=== PATIENT | female | born 1965 | race Two or more races ===

== ENCOUNTER 2024-07-29 16:17 | Inpatient (IN) | payer MEDICAID ==
[~2024-07-29] VITALS: Ht 165.1 cm; Wt 87.1 kg
[2024-07-29] MEDS ORDERED: HYDR-4902 PO (17:27)
[2024-07-29] MEDS ORDERED: IBUP-1455 PO (17:27)
--- NOTE | 2024-07-29 17:28 | ED.PDOC ---
Musculoskeletal HPI Comments 58-year-old female with no pertinent past medical history, presents to ED for right knee pain x2 days. Patient reports that she fell yesterday and broke her kneecap yesterday. She was seen here yesterday and was discharged and advised to follow up with Orthopedics. Patient reports that she fell again today onto her right knee, while using her crutches, causing worsening pain. She denies any head injury, LOC, nausea, vomiting. She currently rates her pain as 10/10 in severity. No alleviating or aggravating factors. Chief Complaint: Lower Extremity Time Seen by MD: 16:47 Primary Care Provider: NONE Reviewed Notes: Nurses Notes, Medications, Allergies Allergies: Coded Allergies: NO KNOWN ALLERGIES (Unverified , 07/28/24) Home Meds Active Scripts Ondansetron Odt 4MG Tab (ZOFRAN PO) 4 Mg Tb, 4 MG PO Q8HPRN PRN, #20 TAB ODT TAB-DISSOLVE IN MOUTH, THEN SWALLOW Prov:EDWIN BOYKIN [facility] 07/29/24 Ibuprofen Micronized (Ibuprofen) 800 Mg Tab, 800 MG PO Q8HPRN PRN, #30 TAB Prov:EDWIN BOYKIN [facility] 07/29/24 Hydrocodone-Acetaminophen (Hydrocodone Bitartrate/AC 5-325 mg) 1 Tab Tab, 1 TAB PO Q6HPRN PRN, #20 TAB Prov:EDWIN BOYKIN [facility] 07/29/24 Mode of Arrival: Wheelchair Past Medical History PAST MEDICAL HISTORY: Denies Surgical History: Denies all surgeries INTERCHANGE AGENT History: No Pertinent INTERCHANGE AGENT History Family History Family History: Reviewed,noncontributory to illness Social History Smoker: Non-Smoker Alcohol: Denies ETOH Use Drugs: Denies Drug Use Constitutional: denies: chills, diaphoresis, fatigue, fever, malaise, sweats, weakness, others EENTM: denies: blurred vision, double vision, ear bleeding, ear discharge, ear drainage, ear pain, ear ringing, eye pain, eye redness, hearing loss, mouth pain, mouth swelling, nasal discharge, nose bleeding, nose congestion, nose pain, photophobia, tearing, throat pain, throat swelling, voice changes, others Respiratory: denies: cough, hemoptysis, orthopnea, SOB at rest, shortness of breath, SOB with excertion, stridor, wheezing, others Cardiovascular: denies: chest pain, dizzy spells, diaphoresis, Dyspnea on exertion, edema, irregular heart beat, left arm pain, lightheadedness, palp itations, PND, syncope, others Gastrointestinal: denies: abdomen distended, abdominal pain, blood streaked bowels, constipated, diarrhea, dysphagia, difficulty swallowing, hematemesis, melena, nausea, poor appetite, poor fluid intake, rectal bleeding, rectal pain, vomiting, others Genitourinary: denies: abnormal vagina bleeding, burning, dyspareunia, dysuria, flank pain, frequency, hematuria, incontinence, pain, , vagina discharge, urgency, others Neurological: denies: dizziness, fainting, headache, left sided numbness, left sided weakness, numbness, paresthesia, pre-existing deficit, right sided numbness, right sided weakness, seizure, speech problems, tingling, tremors, weakness, others Musculoskeletal: reports: joint pain; denies: back pain, gout, joint swelling, muscle pain, muscle stiffness, neck pain, others Integumetry: denies: bruises, change in color, change in hair/nails, dryness, laceration, lesions, lumps, rash, wounds, others Allergic/Immunocompromised: denies: Difficulty Healing, Frequent Infections, Hives, Itching, others Hematologic/Lymphatic: denies: anemia, blood clots, easy bleeding, easy bruising, swollen glands, others Endocrine: denies: excessive hunger, excessive sweating, excessive thirst, excessive urination, flushing, intolerance to cold, intolerance to heat, unexplained weight gain, unexplained weight loss, others Psychiatric: denies: anxiety, bipolar disorder, depression, hopeless, panic disorder, schizophrenia, sleepless, suicidal, others All Other Systems: Reviewed and Negative Physical Exam General Appearance: No Apparent Distress, Normal HEENT: Normal ENT Inspection, Pharynx Normal, TMs Normal Neck: Full Range of Motion, Non-Tender, Normal, Normal Inspection Respiratory: Chest Non-Tender, Lungs Clear, No Accessory Muscle Use, No Respiratory Distress, Normal Breath Sounds Cardiovascular: No Edema, No JVD, No Murmur, No Gallop, Normal Peripheral Pulses, Regular Rate/Rhythm Breast Exam: Deferred Gastrointestinal: No Organomegaly, Non Tender, No Pulsatile Mass, Normal Bowel Sounds, Soft Genitalia: Deferred Pelvic: Deferred Rectal: Deferred Extremities: No calf tenderness, Normal capillary refill, Normal inspection, Normal range of motion, Non-tender, No pedal edema Musculoskeletal : Location: Right Extremity Location: Knee (Patient is in wheelchair with right knee immobilizer. The is moderate swelling noted to the right knee. No obvious deformity noted. Normal sensation to the right knee. No open wounds noted. No pallor noted to the right lower extremity. Negative pulselessness. No pain out of proportion.) Apperance: Normal Neurologic: Alert, quality process auditor II-XII nml as Tested, No Motor Deficits, Normal Affect, Normal Mood, No Sensory Deficits Cerebellar Function: Normal Reflexes: Normal Skin: Dry, Normal Color, Warm Lymphatic: No Adenopathy Was a procedure done? Was a procedure done?: No Differential Diagnosis EXT Differential Diagnosis: Fracture, Sprain, Dislocation, Neurovascular injury, Arthritis X-Ray, Labs, Meds, VS Vital Signs Date Time Temp Pulse Resp B/P (MAP) Pulse Ox O2 Delivery O2 Flow Rate FiO2 07/29/24 16:40 99.6 106 18 161/89 (113) 98 Current Medications Medications (Trade) Dose Ordered Sig/Beltran Route Start Time Stop Time Status Last Admin Acetaminophen/ Hydrocodone Bitart ([place] 5/325MG Tab) 1 tab ONCE ONCE PO 07/29/24 17:30 07/29/24 17:31 DC 07/29/24 17:36 Ondansetron HCl (Zofran Po) 4 mg ONCE ONCE PO 07/29/24 17:30 07/29/24 17:31 DC 07/29/24 17:37 X-Ray, Labs, Meds, VS Comment Right Knee XR Findings/Impression: 3 views of the right knee. Redemonstrated moderately displaced and nondisplaced patellar fracture. Moderate soft tissue edema. There is no evidence of dislocation, blastic, or lytic lesions. No radiopaque foreign bodies. MDM: Patient with history as above presented with right knee pain. History obtained from patient. Patient was nontoxic, stable, afebrile, ambulatory, no acute distress. Exam as above. Independently reviewed imaging. Right Knee X-ray redemonstrates a mid patella fracture, displaced. Reviewed external records. All findings were discussed with the patient. Differential diagnosis considered. Overall presentation is consistent with patella fracture. Low suspicion for dislocation, compartment syndrome. Patient was treated with [place] and Zofran with improvement in symptoms. Patient was reevaluated and vital signs were reviewed. Consideration was given for admission, but the patient was stable for outpatient management. Patient was advised to follow up with orthopedics in clinic yesterday. She tried to follow up today, however she states that the orthopedic department denied since she has emergency [facility]. I spoke to my colleague TESS Nunez, who saw the patient yesterday for the initial fracture. Because patient is now a fall risk and has no ability to do take care of herself and get follow up, the patient will be admitted to the hospital for further evaluation by Orthopedics. With patient being admitted to the hospital, emergency medical should cover. Disposition: Admit This medical document was created using the [email or web address] dictation system. Although this document has been carefully reviewed, there may still be some phonetic and typographical errors, which are due to imperfections of the software program, and do not reflect any compromise in the patient's medical care. Time of 1ST Reevaluation: 17:20 Reevaluation 1ST: Improved Patient Education/Counseling: Diagnosis, Treatment, Prognosis, Need For Follow Up Family Education/Counseling: No Family Present Departure 1 Departure Time of Disposition: 17:26 Impression: Primary Impression: Patella fracture Qualified Codes: S82.031A - Displaced transverse fracture of right patella, initial encounter for closed fracture Disposition: ADMITTED INPATIENT Condition: Fair Critical Care Note Critical Care Time?: No Stability Stability form required: No Heart Score Heart Score: Heart Score Response (Comments) Value History N/A 0 EKG N/A 0 Age N/A 0 Risk Factors N/A 0 Troponin N/A 0 Total 0 EDWIN BOYKIN PAC Jul 29, 2024 17:28
[2024-07-29] MEDS: HYDROcodone-ACET 5/325MG TAB PO ONE (17:36)
[2024-07-29] MEDS: ONDANSETRON ODT 4 MG TAB PO ONE (17:37)
--- NOTE | 2024-07-29 17:38 | DVH ---
EXAM: XY R KNEE 3V XRAY CLINICAL HISTORY: RIGHT KNEE PAIN POST FALL COMPARISON: XY R KNEE 3V XRAY on DOS: 07/28/24 TECHNIQUE: XY R KNEE 3V XRAY Findings/Impression: 3 views of the right knee. Redemonstrated moderately displaced and nondisplaced patellar fracture. Moderate soft tissue edema. There is no evidence of dislocation, blastic, or lytic lesions. No radiopaque foreign bodies.
[2024-07-29] MEDS ORDERED: ZOFR4T PO (17:43)
--- NOTE | 2024-07-29 19:21 | DVH ---
CHEST RADIOGRAPH Indication: pre-op Technique: Single frontal view of the chest was obtained Comparison: None FINDINGS: Lines and Tubes: None Lungs: Clear Pleura: No effusion. No pneumothorax. Cardiomediastinal contours: Unremarkable Bones: Unremarkable IMPRESSION: 1. Clear lungs.
[2024-07-29 19:48] LABS: Basophils # (auto) 0 10 ^3/uL (0-0.2); Basophils % (auto) 0.3 % (0.0-2.0); Eosinophils # (auto) 0 10 ^3/uL (0-0.8); Eosinophils % (auto) 0.5 % (0.0-7.0); Hematocrit 40.9 % (36.0-46.0); Lymphocytes # (auto) 1.4 10 ^3/uL (0.4-5.4); Lymphocytes % (auto) 17.1 % (10.0-50.0); Mean Corpuscular Hemoglobin 31.9 pg (28.0-32.0); Mean Corpuscular Hgb Conc. 34.2 g/dL (32.0-36.0); Mean Corpuscular Volume 93.3 fL (80.0-100.0); Monocytes # (auto) 0.6 10 ^3/uL (0-1.3); Monocytes % (auto) 6.9 % (0.0-12.0); Neutrophils % (auto) 75.2 % (37.0-80.0); Platelet Count (auto) 253 10^3/uL (140-450); Red Blood Cells 4.38 10^6/uL (4.0-5.20); Red Cell Distribution Width 13.5 % (11.8-14.3)
[2024-07-29 19:59] LABS: Alanine Aminotransferase 24 U/L (7-40); Alkaline Phosphatase 57 U/L (46-116)
[2024-07-29 20:00] LABS: Albumin 4.6 g/dL (3.2-4.8); Anion Gap 6 (5-15); Aspartate Aminotransferase 20 U/L (13-40); BUN/Creatinine Ratio 13.7 (10.0-20.0); Bilirubin, Total 0.5 mg/dL (0.2-1.0); Blood Urea Nitrogen 13 mg/dL (9-23); Calcium 10.2 mg/dL (8.7-10.4); Carbon Dioxide 29 mmol/L (20-31); Sodium 144 mmol/L (136-145); Total Protein 7.1 g/dL (5.7-8.2)
[2024-07-29 20:13] LABS: Chloride 109 mmol/L (98-107); Glucose 159 mg/dL (74-106)
[2024-07-29] MEDS ORDERED: NITROGLYCERIN 0.4 MG SL TAB SL PRN (23:00)
[2024-07-29] MEDS ORDERED: MORPHINE SULFATE INJ 2 MG/ml SYRG IV PRN (23:00)
--- NOTE | 2024-07-29 23:41 | DVHHPRES ---
History of Present Illness Resident Creating Document: DERECK CAMPBELL RESIDENT History of Present Illness Patient is a 58-year-old female with no significant past medical history came to the ED for knee pain status post mechanical fall. Patient reports that yesterday she walking on a payment and tripped over a stone and fell down on her right knee and felt that her whole bodies weight was on her right knee. She had severe pain and felt that the bone in kneecap (patella) moved up and she pushed it down. She visited the ER and her right knee was put in an immobilizer. Patient was discharged and given information about the patellar fracture and advised to follow up outpatient with Orthopedics. Patient reports that today while she was in the bathroom, she slipped crutches and fell down with a worsening of the pain in her right knee. Denies trauma to the hip, head trauma, loss of consciousness. Past medical history: None reported Past surgical history: None reported Social history: Lives with the and denies smoking, alcohol, drug use Home medications: [id number] multivitamins and herbal medications Review of Systems Review of Systems Seen and examined at the bedside. Alert and oriented to time, place and person Right knee is in immobilizer and is swollen and pain on movement. Denies headache, hip pain, dizziness, loss of consciousness. Denies chest pain, shortness of breath, palpitations Allergies: Coded Allergies: NO KNOWN ALLERGIES (Unverified , 07/28/24) Medications Current Medications Medications Dose Ordered Sig/Beltran Route Start Time Stop Time Status Last Admin Dose Admin Nitroglycerin 0.4 mg Q5MINP PRN SL 07/29/24 23:00 Morphine Sulfate 2 mg Q30M PRN IV 07/29/24 23:00 Acetaminophen/ Hydrocodone Bitart 1 tab Q6HPRN PRN PO 07/29/24 23:15 Exam Vital Signs Vital Signs Date Time Temp Pulse Resp B/P (MAP) Pulse Ox O2 Delivery O2 Flow Rate FiO2 07/29/24 16:40 99.6 106 18 161/89 (113) 98 Exam Physical Examination Gen - no pallor, no icterus, no cyanosis, no clubbing, no LAD, no edema . Skin - Patients skin is warm and dry. HEENT - normocephalic, atraumatic, moist mucous membranes. Neck - full ROM, no LAD, no JVD. Pulmonary - B/L vesicular breath sounds. no crackles , no wheezing, no stridor. cardiovascular - normal S1,S2 heard. no murmurs heard. peripheral pulses radial 2+, pedal 2+. GI - soft abdomen without tenderness to palpation . no hepatospleenomegaly. Bowel sounds normoactive Neurological - Patient is A/O X 3 .Bilateral upper extremity strength 5/5, left lower extremity strength 5/5, right knee immobilized, normal right foot flexion and extension, no facial droop, normal speech, no tremor, no sensory deficiets. Labs/Xrays Labs Test 07/29/24 19:15 Range/Units White Blood Count 8.0 4.4-10.8 10^3/uL Red Blood Count 4.38 4.0-5.20 10^6/uL Hemoglobin 14.0 12.2-16.2 g/dL Hematocrit 40.9 36.0-46.0 % Mean Corpuscular Volume 93.3 80.0-100.0 fL Mean Corpuscular Hemoglobin 31.9 28.0-32.0 pg Mean Corpuscular Hemoglobin Concent 34.2 32.0-36.0 g/dL Red Cell Distribution Width 13.5 11.8-14.3 % Platelet Count 253 140-450 10^3/uL Mean Platelet Volume 8.6 6.9-10.8 fL Neutrophils (%) (Auto) 75.2 37.0-80.0 % Lymphocytes (%) (Auto) 17.1 10.0-50.0 % Monocytes (%) (Auto) 6.9 0.0-12.0 % Eosinophils (%) (Auto) 0.5 0.0-7.0 % Basophils (%) (Auto) 0.3 0.0-2.0 % Neutrophils # (Auto) 6.0 1.6-8.6 10 ^3/uL Lymphocytes # (Auto) 1.4 0.4-5.4 10 ^3/uL Monocytes # (Auto) 0.6 0-1.3 10 ^3/uL Eosinophils # (Auto) 0 0-0.8 10 ^3/uL Basophils # (Auto) 0 0-0.2 10 ^3/uL Nucleated Red Blood Cells 0.0 % Sodium Level 144 136-145 mmol/L Potassium Level 4.0 3.5-5.1 mmol/L Chloride Level 109 H 98-107 mmol/L Carbon Dioxide Level 29 20-31 mmol/L Anion Gap 6 5-15 Blood Urea Nitrogen 13 9-23 mg/dL Creatinine 0.95 0.550-1.02 mg/dL Glomerular Filtration Rate Calc 69 >90 mL/min BUN/Creatinine Ratio 13.7 10.0-20.0 Serum Glucose 159 H 74-106 mg/dL Calcium Level 10.2 8.7-10.4 mg/dL Total Bilirubin 0.5 0.2-1.0 mg/dL Aspartate Amino Transferase (AST) 20 13-40 U/L Alanine Aminotransferase (ALT) 24 7-40 U/L Alkaline Phosphatase 57 46-116 U/L Total Protein 7.1 5.7-8.2 g/dL Albumin 4.6 3.2-4.8 g/dL Assessment/Plan Assessment/Plan Assessment and plan # Right Patellar fracture # S/p mechanical fall - right knee X ray shows moderately displaced and nondisplaced patellar fracture - Knee placed in immobiliser - Orthopaedics consulted - Quinten prn for pain control # Uncontrolled Hypertension # Hypertensive heart disease - On hydralazine 10mg prn - Continue BP monitoring Goals of care discussed with the patient for over 23 mins. full code Plan discussed with Plan discussed with: Patient, Spouse My Orders Orders - DERECK CAMPBELL RESIDENT Procedure Category Date Status Time Admit ADMIT 07/29/24 Transmitted 22:54 Nitroglycerin PHA 07/29/24 In Process Sublingual (Ntrostat 23:00 Morphine Sulfate PHA 07/29/24 In Process Injection 23:00 Basic Metabolic Panel LAB 07/30/24 Verified 04:00 Complete Blood Count LAB 07/30/24 Verified 04:00 Prothrombin Time W/ LAB 07/30/24 Verified INR 04:00 Electrocardigram EKG 07/29/24 Logged 22:54 Hydrocodone-Acet PHA 07/29/24 In Process 5/325mg Tab ([place] 23:15 * Orthopedic Consult CONS 07/29/24 Transmitted 23:03 Date of Service: Jul 29, 2024 Billing Provider: ELOINA FLEMING MD Common Visit Codes: [id number] INP/OBS CARE (HIGH) Secondary Visit Codes: [id number] CARE PLAN 30 MINUTES DERECK CAMPBELL RESIDENT Jul 29, 2024 23:40 ELOINA FLEMING MD Jul 30, 2024 09:25
[2024-07-30] MEDS: HYDROcodone-ACET 5/325MG TAB PO PRN (03:26)
[2024-07-30] MEDS ORDERED: hydrALAZINE HCL 20 MG/ML VL IV PRN (04:15)
[2024-07-30 04:22] LABS: Basophils # (auto) 0 10 ^3/uL (0-0.2); Basophils % (auto) 0.4 % (0.0-2.0); Eosinophils # (auto) 0.2 10 ^3/uL (0-0.8); Eosinophils % (auto) 2.1 % (0.0-7.0); Hematocrit 39.4 % (36.0-46.0); Hemoglobin 13.5 g/dL (12.2-16.2); Lymphocytes % (auto) 26.2 % (10.0-50.0); Mean Corpuscular Hemoglobin 32.1 pg (28.0-32.0); Mean Corpuscular Hgb Conc. 34.3 g/dL (32.0-36.0); Mean Corpuscular Volume 93.8 fL (80.0-100.0); Monocytes # (auto) 0.6 10 ^3/uL (0-1.3); Monocytes % (auto) 7.7 % (0.0-12.0); Neutrophils # (auto) 4.9 10 ^3/uL (1.6-8.6); Neutrophils % (auto) 63.6 % (37.0-80.0); Nucleated Red Blood Cells % 0.1 %; Platelet Count (auto) 223 10^3/uL (140-450); Red Cell Distribution Width 13.5 % (11.8-14.3); White Blood Cell 7.7 10^3/uL (4.4-10.8)
[2024-07-30 04:23] LABS: Potassium 3.5 mmol/L (3.5-5.1); Sodium 143 mmol/L (136-145)
[2024-07-30 04:24] LABS: Anion Gap 6 (5-15); Carbon Dioxide 27 mmol/L (20-31)
[2024-07-30 04:25] LABS: Calcium 10.1 mg/dL (8.7-10.4)
[2024-07-30 04:29] LABS: BUN/Creatinine Ratio 13.5 (10.0-20.0); Blood Urea Nitrogen 13 mg/dL (9-23)
[2024-07-30 04:30] LABS: Chloride 110 mmol/L (98-107); Glucose 147 mg/dL (74-106); INR 1.01 (0.9-1.15); Prothrombin Time 10.7 sec (9.3-11.8)
[2024-07-30 04:57] LABS: Folate (Folic Acid) 44.08 ng/mL (>5.38)
[2024-07-30 08:30] VITALS: PULSE 89; RESP 16; O2SAT 98
[2024-07-30 13:00] VITALS: BP 143/71; PULSE 87; RESP 18; TEMP 98.5; O2SAT 95
[2024-07-30 16:34] VITALS: BP 149/86; PULSE 84; RESP 16; TEMP 98.4; O2SAT 97
--- NOTE | 2024-07-30 16:39 | DVHPN2 ---
Subjective Patient continues to report having right knee pain. Reviewed: Care Plan, H&P, Labs, Medications Changes from previous H/P or p: No Changes General: Per HPI Objective Vitals Vital Signs Date Time Temp Pulse Resp B/P (MAP) Pulse Ox O2 Delivery O2 Flow Rate FiO2 07/30/24 16:34 98.4 84 16 149/86 (107) 97 98.4 07/30/24 12:08 Room Air* 0 21 General Appearance: Alert, Oriented X3, Cooperative, No acute distress HEENT: Atraumatic, PERRLA Lungs: Clear to auscultation, Normal air movement Cardiovascular: Normal S1, Normal S2 Extremities: Other (Right knee swelling) Neuro: Normal gait, Normal speech Psych/Mental Status: Mental status NL, Mood NL Medications Current Medications Medications Dose Ordered Sig/Beltran Route Start Time Stop Time Status Last Admin Dose Admin Nitroglycerin 0.4 mg Q5MINP PRN SL 07/29/24 23:00 Morphine Sulfate 2 mg Q30M PRN IV 07/29/24 23:00 Acetaminophen/ Hydrocodone Bitart 1 tab Q6HPRN PRN PO 07/29/24 23:15 07/30/24 12:42 1 TAB Hydralazine HCl 10 mg Q6HP PRN IV 07/30/24 04:15 Laboratory Results Laboratory Tests 07/30/24 03:49 Chemistry Test 07/29/24 19:15 07/30/24 03:49 Albumin 4.6 g/dL (3.2-4.8) Calcium Level 10.2 mg/dL (8.7-10.4) 10.1 mg/dL (8.7-10.4) Total Protein 7.1 g/dL (5.7-8.2) Coagulation Test 07/30/24 03:49 Prothrombin Time 10.7 sec (9.3-11.8) Prothrombin Time INR 1.01 (0.9-1.15) LFT Test 07/29/24 19:15 Alanine Aminotransferase (ALT) 24 U/L (7-40) Alkaline Phosphatase 57 U/L (46-116) Aspartate Amino Transferase (AST) 20 U/L (13-40) Total Bilirubin 0.5 mg/dL (0.2-1.0) HgA1c, TSH Test 07/30/24 03:49 Hemoglobin A1c 5.4 % A1C (<5.7) Labs and/or images reviewed: Labs reviewed by me, Image(s) reviewed by me Assessment/Plan Assessment/Plan Impression: -non communicated right patellar fracture -obesity Plan: -pain management -orthopedic surgery consultation -continue immobilizer to right lower extremity -further course of care per recommendations by surgery. Total time spent with patient discussing and formulating plan of care: 35 minutes. This medical document was created using an electronic medical record system with [employer] dictation system. Although this document has been carefully reviewed, there may still be some phonetic and typographical errors. These areas are purely typographical due to imperfections of the software programs, and do not reflect any compromise in the patient's medical care. Plan discussed with: Patient, Other (RN) Date of Service: Jul 30, 2024 Billing Provider: KYLIE ASTUDILLO NP Common Visit Codes: [id number] INP/OBS CARE(HIGH) KYLIE ASTUDILLO NP Jul 30, 2024 16:39
[2024-07-30 20:00] VITALS: PULSE 94; RESP 18
[2024-07-30 21:00] VITALS: BP 149/78; PULSE 88; RESP 18; TEMP 98.3; O2SAT 93
[2024-07-30 23:10] LABS: Urine Bacteria None Seen /hpf (None Seen)
[2024-07-30 23:24] LABS: Urine Blood Negative /uL (Negative); Urine Clarity Clear (Clear); Urine Color Colorless (Yellow); Urine Protein, UAD Negative (Negative); Urine Specific Gravity 1.005 (1.001-1.035); Urine Squamous Epithelial Cell FEW /hpf (<5); Urine Urobilinogen Normal (Negative); Urine WBC <1 /hpf (0 - 5)
[2024-07-31] VITALS (9 sets, daily range): BP systolic 130–157; BP diastolic 74–89; PULSE 84–111; RESP 14–19; TEMP 97.8–98.8; O2SAT 92–99
[2024-07-31] MEDS ORDERED: PROPOFOL 10 MG/ML 20 ML IV ONE ×3 (11:21→12:50)
[2024-07-31] MEDS ORDERED: GLYCOPYRROLATE 0.2 MG/ML 1ML VIAL ONE (11:21)
[2024-07-31] MEDS ORDERED: DexAMETHasone SOD PHOS 10MG/1ML VIAL INJ ONE ×2 (11:22)
[2024-07-31] MEDS ORDERED: EPINEPHrine HCL 1 MG/1 ML AMP ONE (11:22)
[2024-07-31] MEDS ORDERED: ONDANSETRON HCL 4 MG/2 ML VIAL ONE (11:22)
[2024-07-31] MEDS ORDERED: KETOROLAC TROMETH 30 MG/ML 1ML VIAL ONE (11:22)
[2024-07-31] MEDS: ACETAMINOPHEN IV 1000 MG/100ML (10MG/ML) IV ONE (11:45)
[2024-07-31] MEDS: GABAPENTIN 300 MG CAP PO ONE (11:45)
[2024-07-31] MEDS: CELECOXIB 100 MG CAP PO ONE (11:45)
[2024-07-31] MEDS: ceFAZolin 2 GM/D5W100ml 100 ML IV ONE (11:47)
[2024-07-31] MEDS: VANCOMYCIN HCL 1000 MG VL ONE (11:47)
[2024-07-31] MEDS ORDERED: LIDOCAINE 2% (LOCAL ANESTH.) PF 5ml SDV ONE (11:55)
[2024-07-31] MEDS: BUPIVACAINE HCL 50 ML ONE (12:13)
[2024-07-31] MEDS ORDERED: fentaNYL CITRATE 100 MCG/2 ML VL ONE (12:44)
[2024-07-31] MEDS ORDERED: hydrALAZINE HCL 20 MG/ML VL IV PRN (14:00)
[2024-07-31] MEDS ORDERED: ePHEDrine SULFATE 50 MG/ML AMP IV PRN (14:00)
[2024-07-31] MEDS ORDERED: oxyCODONE HCL 5MG TAB PO PRN (14:00)
[2024-07-31] MEDS ORDERED: FLUMAZENIL 0.1 MG/ML INJ 10ML MDV IV PRN (14:00)
[2024-07-31] MEDS ORDERED: HYDROmorphone HCL 2 MG/ML VL/or syr IV PRN (14:00)
[2024-07-31] MEDS ORDERED: NALOXONE HCL 0.4 MG/ML VIAL IV PRN (14:00)
[2024-07-31] MEDS ORDERED: fentaNYL CITRATE 100 MCG/2 ML VL IV PRN (14:00)
[2024-07-31] MEDS ORDERED: ONDANSETRON HCL 4 MG/2 ML VIAL IV PRN (14:00)
--- NOTE | 2024-07-31 14:29 | DVHINCON2 ---
Date of service: Jul 31, 2024 Allergies: Coded Allergies: NO KNOWN ALLERGIES (Unverified , 07/28/24) Current Medications Current Medications Medications (Trade) Dose Ordered Sig/Beltran Route PRN Reason Start Time Stop Time Status Last Admin Ondansetron HCl (Zofran) 4 mg ONCE PRN IV NAUSEA / VOMITING 07/31/24 14:00 07/31/24 14:03 DC Naloxone HCl (Narcan) 0.4 mg Q10M PRN IV NARCOTIC REVERSAL 07/31/24 14:00 07/31/24 14:27 DC Flumazenil (Romazicon Injection) 0.2 mg ONCE PRN IV BENZODIAZEPINE REVERSAL 07/31/24 14:00 07/31/24 14:03 DC Hydralazine HCl (Apresoline Injection) 5 mg Q10M PRN IV SBP>160 07/31/24 14:00 07/31/24 14:51 Ephedrine Sulfate (ePHEDrine SULFATE) 10 mg Q10M PRN IV SBP LESS THAN 90 07/31/24 14:00 07/31/24 14:41 Fentanyl Citrate 25 mcg Q1HP PRN IV BREAKTHROUGH PAIN (7-10) 07/31/24 14:00 07/31/24 14:03 DC Hydromorphone HCl (Dilaudid Injection) 0.5 mg Q10M PRN IV SEVERE PAIN (7-10 PAIN SCALE) 07/31/24 14:00 07/31/24 14:41 Oxycodone HCl 10 mg ONCE PRN PO MODERATE PAIN (4-6 PAIN SCALE) 07/31/24 14:00 07/31/24 18:00 Vital Signs Vital Signs Date Time Temp Pulse Resp B/P (MAP) Pulse Ox O2 Delivery O2 Flow Rate FiO2 07/31/24 14:25 74 12 135/86 (102) 95 07/31/24 14:02 Room Air 97 07/31/24 13:42 97.7 97.7 07/31/24 13:42 10.0 Labs/Diagnostic Data Labs Test 07/30/24 22:15 07/30/24 03:49 07/29/24 19:15 Range/Units Urine Color Colorless Yellow Urine Clarity Clear Clear Urine pH 6.0 5.0-9.0 Urine Specific [place] 1.005 1.001-1.035 Urine Protein Negative Negative Urine Ketones Negative Negative Urine Blood Negative Negative /uL Urine Nitrite Negative Negative Urine Bilirubin Negative Negative Urine Urobilinogen Normal Negative mg/dL Urine Leukocyte Esterase Trace Negative /uL Urine RBC None seen 0 - 4 /hpf Urine WBC <1 0 - 5 /hpf Urine Squamous Epithelial Cells Few <5 /hpf Urine Bacteria None seen None Seen /hpf Urine Glucose Normal Normal mg/dL White Blood Count 7.7 4.4-10.8 10^3/uL Red Blood Count 4.20 4.0-5.20 10^6/uL Hemoglobin 13.5 12.2-16.2 g/dL Hematocrit 39.4 36.0-46.0 % Mean Corpuscular Volume 93.8 80.0-100.0 fL Mean Corpuscular Hemoglobin 32.1 H 28.0-32.0 pg Mean Corpuscular Hemoglobin Concent 34.3 32.0-36.0 g/dL Red Cell Distribution Width 13.5 11.8-14.3 % Platelet Count 223 140-450 10^3/uL Mean Platelet Volume 8.2 6.9-10.8 fL Neutrophils (%) (Auto) 63.6 37.0-80.0 % Lymphocytes (%) (Auto) 26.2 10.0-50.0 % Monocytes (%) (Auto) 7.7 0.0-12.0 % Eosinophils (%) (Auto) 2.1 0.0-7.0 % Basophils (%) (Auto) 0.4 0.0-2.0 % Neutrophils # (Auto) 4.9 1.6-8.6 10 ^3/uL Lymphocytes # (Auto) 2.0 0.4-5.4 10 ^3/uL Monocytes # (Auto) 0.6 0-1.3 10 ^3/uL Eosinophils # (Auto) 0.2 0-0.8 10 ^3/uL Basophils # (Auto) 0 0-0.2 10 ^3/uL Nucleated Red Blood Cells 0.1 % Prothrombin Time 10.7 9.3-11.8 sec Prothrombin Time INR 1.01 0.9-1.15 Sodium Level 143 136-145 mmol/L Potassium Level 3.5 3.5-5.1 mmol/L Chloride Level 110 H 98-107 mmol/L Carbon Dioxide Level 27 20-31 mmol/L Anion Gap 6 5-15 Blood Urea Nitrogen 13 9-23 mg/dL Creatinine 0.96 0.550-1.02 mg/dL Glomerular Filtration Rate Calc 68 >90 mL/min BUN/Creatinine Ratio 13.5 10.0-20.0 Serum Glucose 147 H 74-106 mg/dL Hemoglobin A1c 5.4 <5.7 % A1C Calcium Level 10.1 8.7-10.4 mg/dL Vitamin B12 Level 2483 H 211-911 pg/mL Vitamin D 25-Hydroxy 64.7 30.0-100 ng/mL Folic Acid 44.08 >5.38 ng/mL Total Bilirubin 0.5 0.2-1.0 mg/dL Aspartate Amino Transferase (AST) 20 13-40 U/L Alanine Aminotransferase (ALT) 24 7-40 U/L Alkaline Phosphatase 57 46-116 U/L Total Protein 7.1 5.7-8.2 g/dL Albumin 4.6 3.2-4.8 g/dL Assessment This is a 58-year-old female who was admitted through the emergency room and Orthopedics was consulted for a patella fracture. She sustained a ground level fall around three days ago. Clinical and radiological evaluation demonstrated a patella mid transverse fracture with displacement. Nonoperative and operative management options were discussed. Surgery in the form of open reduction and internal fixation was recommended. Benefits, risks and treatment alternatives were discussed. Specific complications of the surgery such as neurovascular injury, infection, arthrofibrosis, loss of limb or life were discussed. She decided to proceed with the surgical option. Past medical history/past surgical history: None relevant, see chart for other details Review of systems: 10 point review of systems was performed and was negative Physical exam: AAA x3, lower extremity is examined. Significant knee swelling noted. Transfers cap palpated. Unable to extend the knee. Plan: Surgery today in the form of open reduction and internal fixation of the patella. Plan discussed with: Patient PATSY HOBBS MD Jul 31, 2024 14:29
--- NOTE | 2024-07-31 14:32 | DVHOP2 ---
Operative Report - 2 Report Details Date: 07/31/24 Preop Diagnosis: Right knee patellar fracture, transverse, displaced, closed Postop Diagnosis: Right knee patellar fracture, transverse, displaced, closed Surgeon: Patsy Orozco MD Anesthesiologist: Lg Truong CRNA Anesthesia: General, Regional Implant: Arthrex two screws, internal brace Consent: The patient was informed of the risks and benefits of the procedure. These include but are not limited to complications of anesthesia, postoperative infection, incomplete relief of symptoms, recurrence of symptoms, damage to blood vessels, nerves and tendons, deep venous thrombosis, pulmonary embolism and possible need for repeat surgery in the future. Complications: None Estimated Blood Loss: Less than 10 mL Indications for Surgery: This is a 58-year-old female who was admitted through the emergency room and Orthopedics was consulted for a patella fracture. She sustained a ground level fall around three days ago. Clinical and radiological evaluation demonstrated a patella mid transverse fracture with displacement. Nonoperative and operative management options were discussed. Surgery in the form of open reduction and internal fixation was recommended. Benefits, risks and treatment alternatives w ere discussed. Specific complications of the surgery such as neurovascular injury, infection, arthrofibrosis, loss of limb or life were discussed. She decided to proceed with the surgical option. Name of Procedure Performed Right knee patellar fracture open reduction internal fixation Procedure Details Procedure Details: The patient was identified in the preoperative holding area and the surgical site was marked. The consent was verified. She was brought into the operating room and placed supine on the operating table. General anesthesia was administered. Intravenous antibiotics were given. The extremity was prepped and draped in the usual sterile manner. Timeout was called out to confirm the identity of patient, the nature of surgery, the site of surgery, the availability of implants and x-rays and allergies to medications. A longitudinal incision was made at the center of the patella, slightly medial. The skin and the subcutaneous tissue were dissected. The quadriceps tendon and the patellar tendons were identified. The extensor retinaculum was identified and incised. The fracture was now identified. There was some displacement of the fracture and some rotation. This was reduced using a clamp. AP and lateral images were obtained to confirm the reduction. Next a drill guide was used to insert 2 K wires parallel to each other. AP and lateral images were obtained and the wires were adjusted as needed. Next a drill was used to drill over the se wires. Next a screw was used for fixation. Next a needle was inserted along with a fiber tape. This was inserted in a crisscross fashion to do the tension band fixation. This was tightened now for excellent fixation. Irrigation was given. All the deep tissue including the extensor retinaculum was closed with a fiber tape. The superficial tissue was closed with 0 Vicryl and 2-0 Vicryl. The skin was closed with 3-0 Monocryl. Steri-Strips applied. The knee was placed in hinged range of motion brace set at -10 degrees, locked in extension. Condition Good Disposition Still a Patient PATSY OROZCO MD Jul 31, 2024 14:32
--- NOTE | 2024-07-31 14:46 | DVH ---
EXAM: XY R KNEE 2V XRAY HISTORY: ORIF RIGHT PATELLA FX FLUOROSCOPY TIME: 31.6 seconds FLUOROSCOPY IMAGES: 9 Total dose: 1.52 mGy TECHNIQUE: Intraoperative radiographs of the right knee were obtained. COMPARISON: XY R KNEE 3V XRAY on DOS: 07/29/24, XY R KNEE 3V XRAY on DOS: 07/28/24 FINDINGS/IMPRESSION: Refer to intraoperative report for further evaluation.
--- NOTE | 2024-07-31 14:47 | DVH ---
EXAM: XY C ARM FLUOROSCOPY UP TO 60MIN HISTORY: ORIF RIGHT PATELLA FX FLUOROSCOPY TIME: 31.6 seconds FLUOROSCOPY IMAGES: 9 Total dose: 1.52 mGy TECHNIQUE: Intraoperative radiographs of the right knee were obtained. COMPARISON: None FINDINGS/IMPRESSION: Refer to intraoperative report for further evaluation.
--- NOTE | 2024-07-31 16:50 | DVHPN2 ---
Subjective Patient continues to report having right knee pain. Reviewed: Care Plan, H&P, Labs, Medications Changes from previous H/P or p: No Changes General: Per HPI Objective Vitals Vital Signs Date Time Temp Pulse Resp B/P (MAP) Pulse Ox O2 Delivery O2 Flow Rate FiO2 07/31/24 14:25 74 12 135/86 (102) 95 07/31/24 14:02 Room Air 97 07/31/24 13:42 97.7 97.7 07/31/24 13:42 10.0 Intake/Output Intake and Output 07/31/24 07:00 Intake Total 1500 ml Balance 1500 ml Intake Oral 1500 ml # Voids 3 General Appearance: Alert, Oriented X3, Cooperative, No acute distress HEENT: Atraumatic, PERRLA Lungs: Clear to auscultation, Normal air movement Cardiovascular: Normal S1, Normal S2 Extremities: Other (Right knee swelling) Neuro: Normal gait, Normal speech Psych/Mental Status: Mental status NL, Mood NL Medications Current Medications Medications Dose Ordered Sig/Beltran Route Start Time Stop Time Status Last Admin Dose Admin Nitroglycerin 0.4 mg Q5MINP PRN SL 07/29/24 23:00 Morphine Sulfate 2 mg Q30M PRN IV 07/29/24 23:00 Acetaminophen/ Hydrocodone Bitart 1 tab Q6HPRN PRN PO 07/29/24 23:15 07/30/24 22:20 1 TAB Hydralazine HCl 10 mg Q6HP PRN IV 07/30/24 04:15 Oxycodone HCl 10 mg ONCE PRN PO 07/31/24 14:00 07/31/24 18:00 Laboratory Results Laboratory Tests 07/30/24 03:49 Urinalysis Test 07/30/24 22:15 Urine Color Colorless (Yellow) Urine Clarity Clear (Clear) Urine pH 6.0 (5.0-9.0) Urine Specific [place] 1.005 (1.001-1.035) Urine Protein Negative (Negative) Urine Ketones Negative (Negative) Urine Blood Negative /uL (Negative) Urine Nitrite Negative (Negative) Urine Bilirubin Negative (Negative) Urine Urobilinogen Normal mg/dL (Negative) Urine Leukocyte Esterase Trace /uL (Negative) Urine RBC None seen /hpf (0 - 4) Urine WBC <1 /hpf (0 - 5) Urine Squamous Epithelial Cells Few /hpf (<5) Urine Bacteria None seen /hpf (None Seen) Urine Glucose Normal mg/dL (Normal) Microbiology Microbiology Date/Time Source Procedure Growth Status 07/30/24 19:18 Nose MRSA Screen - Final Complete Labs and/or images reviewed: Labs reviewed by me, Image(s) reviewed by me Assessment/Plan Assessment/Plan Impression: -non communicated right patellar fracture -obesity Plan: -events: Patient was status post right patellar ORIF. -pain management -orthopedic surgery consultation -continue immobilizer to right lower extremity -further course of care per recommendations by surgery. -DC planning for a.m. Total time spent with patient discussing and formulating plan of care: 35 minutes. This medical document was created using an electronic medical record system with [employer] dictation system. Although this document has been carefully reviewed, there may still be some phonetic and typographical errors. These areas are purely typographical due to imperfections of the software programs, and do not reflect any compromise in the patient's medical care. Plan discussed with: Patient, Other (RN) Date of Service: Jul 31, 2024 Billing Provider: KYLIE ASTUDILLO NP Common Visit Codes: [id number] INP/OBS CARE(HIGH) KYLIE ASTUDILLO NP Jul 31, 2024 16:50
[2024-08-01 01:00] VITALS: BP 134/77; PULSE 102; RESP 18; TEMP 98.2; O2SAT 91
[2024-08-01 05:00] VITALS: BP 142/86; PULSE 91; RESP 18; TEMP 98.1; O2SAT 95
[2024-08-01 08:00] VITALS: PULSE 80; RESP 18
[2024-08-01] MEDS ORDERED: HYDR-4902 PO (08:49)
[2024-08-01 09:00] VITALS: BP 151/81; PULSE 80; RESP 16; TEMP 98.1; O2SAT 96
[2024-08-01 09:17] VITALS: BP 99/61; PULSE 99; RESP 18; TEMP 97.8; O2SAT 96
[2024-08-01] MEDS ORDERED: ASPI-543 PO (10:01)
[2024-08-01] MEDS: cefTRIAXone 1GM/50ML D5W 50 ML IV SCH (10:01)
[2024-08-01 10:30] VITALS: BP 151/81; PULSE 80; RESP 16; TEMP 98.1; O2SAT 96
--- NOTE | 2024-08-01 11:31 | DVHDS2 ---
Discharge Summary Date of Admission Jul 29, 2024 at 22:54 Date of Discharge: Aug 01, 2024 Admitting Diagnosis Right patellar non communicated fracture Labs/Diagnostic Data: Laboratory Results Test 07/30/24 22:15 07/30/24 03:49 07/29/24 19:15 Urine Color Colorless (Yellow) Urine Clarity Clear (Clear) Urine pH 6.0 (5.0-9.0) Urine Specific [place] 1.005 (1.001-1.035) Urine Protein Negative (Negative) Urine Ketones Negative (Negative) Urine Blood Negative /uL (Negative) Urine Nitrite Negative (Negative) Urine Bilirubin Negative (Negative) Urine Urobilinogen Normal mg/dL (Negative) Urine Leukocyte Esterase Trace /uL (Negative) Urine RBC None seen /hpf (0 - 4) Urine WBC <1 /hpf (0 - 5) Urine Squamous Epithelial Cells Few /hpf (<5) Urine Bacteria None seen /hpf (None Seen) Urine Glucose Normal mg/dL (Normal) White Blood Count 7.7 10^3/uL (4.4-10.8) Red Blood Count 4.20 10^6/uL (4.0-5.20) Hemoglobin 13.5 g/dL (12.2-16.2) Hematocrit 39.4 % (36.0-46.0) Mean Corpuscular Volume 93.8 fL (80.0-100.0) Mean Corpuscular Hemoglobin 32.1 pg (28.0-32.0) Mean Corpuscular Hemoglobin Concent 34.3 g/dL (32.0-36.0) Red Cell Distribution Width 13.5 % (11.8-14.3) Platelet Count 223 10^3/uL (140-450) Mean Platelet Volume 8.2 fL (6.9-10.8) Neutrophils (%) (Auto) 63.6 % (37.0-80.0) Lymphocytes (%) (Auto) 26.2 % (10.0-50.0) Monocytes (%) (Auto) 7.7 % (0.0-12.0) Eosinophils (%) (Auto) 2.1 % (0.0-7.0) Basophils (%) (Auto) 0.4 % (0.0-2.0) Neutrophils # (Auto) 4.9 10 ^3/uL (1.6-8.6) Lymphocytes # (Auto) 2.0 10 ^3/uL (0.4-5.4) Monocytes # (Auto) 0.6 10 ^3/uL (0-1.3) Eosinophils # (Auto) 0.2 10 ^3/uL (0-0.8) Basophils # (Auto) 0 10 ^3/uL (0-0.2) Nucleated Red Blood Cells 0.1 % Prothrombin Time 10.7 sec (9.3-11.8) Prothrombin Time INR 1.01 (0.9-1.15) Sodium Level 143 mmol/L (136-145) Potassium Level 3.5 mmol/L (3.5-5.1) Chloride Level 110 mmol/L (98-107) Carbon Dioxide Level 27 mmol/L (20-31) Anion Gap 6 (5-15) Blood Urea Nitrogen 13 mg/dL (9-23) Creatinine 0.96 mg/dL (0.550-1.02) Glomerular Filtration Rate Calc 68 mL/min (>90) BUN/Creatinine Ratio 13.5 (10.0-20.0) Serum Glucose 147 mg/dL (74-106) Hemoglobin A1c 5.4 % A1C (<5.7) Calcium Level 10.1 mg/dL (8.7-10.4) Vitamin B12 Level 2483 pg/mL (211-911) Vitamin D 25-Hydroxy 64.7 ng/mL (30.0-100) Folic Acid 44.08 ng/mL (>5.38) Total Bilirubin 0.5 mg/dL (0.2-1.0) Aspartate Amino Transferase (AST) 20 U/L (13-40) Alanine Aminotransferase (ALT) 24 U/L (7-40) Alkaline Phosphatase 57 U/L (46-116) Total Protein 7.1 g/dL (5.7-8.2) Albumin 4.6 g/dL (3.2-4.8) Other Laboratory Tests 07/30/24 03:49 Brief Hx & Hospital Course: History of Present Illness Patient is a 58-year-old female with no significant past medical history came to the ED for knee pain status post mechanical fall. Patient reports that yesterday she walking on a payment and tripped over a stone and fell down on her right knee and felt that her whole bodies weight was on her right knee. She had severe pain and felt that the bone in kneecap (patella) moved up and she pushed it down. She visited the ER and her right knee was put in an immobilizer. Patient was discharged and given information about the patellar fracture and advised to follow up outpatient with Orthopedics. Patient reports that today while she was in the bathroom, she slipped crutches and fell down with a worsening of the pain in her right knee. Denies trauma to the hip, head trauma, loss of consciousness. Course of hospitalization: Patient was taking to the OR yesterday 07/31/2024 for ORIF of the right patella. Postoperatively, the patient will remain in a brace, with the patient remaining without weight-bearing to the extremity. Patient reports that she has crutches from previous admission in the hospital. Patient will be given one dose of IV Rocephin today for postoperative prophylactic antibiotic, then we will be discharged home with aspirin 81 mg p.o. twice a day for DVT prophylaxis as well as [place] 5/325 q. 8 hours as needed for [id number] pain not alleviated with [id number] Tylenol. Patient will follow up with the discharge Clinic in one week as well as following up with orthopedic surgeon in 1-2 weeks. Instructions were given to both the patient and has been who was bedside. All questions answered. Physical exam General: Alert and Oriented x3. No acute distress. Well-nourished. Eyes: EOMI. Anicteric. HENT: Moist mucous membranes. Lungs: Clear to auscultation bilaterally. No accessory muscle use. Cardiovascular: Regular rate and rhythm. No murmur. No JVD. Abdomen: Soft, non-tender and non-distended. No palpable masses. Extremities: No edema. Non-tender. Right leg brace. Dressing dry and intact. Skin: No rashes or lesions. Warm. Neurologic: No focal neurological deficits. CN II-XII grossly intact, but not individually tested. Psychiatric: Cooperative. Appropriate mood and affect. Total time spent with patient discussing and formulating plan of care: 35 minutes. This medical document was created using an electronic medical record system with [employer] system. Although this document has been carefully reviewed, there may still be some phonetic and typographical errors. These areas are purely typographical due to imperfections of the software programs, and do not reflect any compromise in the patient's medical care. Consults/Reason for consult Orthopedic surgery: Right patella fracture Operations or Procedures 07/31/2024: Right patellar ORIF Condition at Discharge: Good Final Diagnosis/Problems List Right knee patellar fracture, transverse, displaced, closed Secondary Diagnosis: Obesity Status post right patella ORIF Discharge Disposition: Home Discharge Instruct/Medications Diet: Regular Activity: See Comment Activity comment: Nonweightbearing to right lower extremity Please continue to use brace and crutches Follow Up/Referral: Follow up with Orthopedic surgery in 1-2 weeks Medications: [place] 5/325 q.8 hours as needed for [id number]-[id number] pain not relieved by hnha-xpe-xhgscie Tylenol 36 Discharge Statement: "Patient was advised to return to the ER or call 911 if any headaches, dizziness, shortness of breath, chest pain, abdominal pain, bleeding, fevers, or worsening of medical condition. Patient was counseled about treatment plan, medications, possible side effects, patientverbalized understanding. All questions were answered to the best of my ability. This discharge took greater then 30 minutes in planning, reviewing documentation, counseling the patient, and discussing with other team members." ASSESSMENT ASSESSMENT Assessment Right knee patellar fracture, transverse, displaced, closed Date of Service: Aug 01, 2024 Billing Provider: KYLIE ASTUDILLO NP Common Visit Codes: [id number]-DCX/OBS DISCH DAY >30min KYLIE ASTUDILLO NP Aug 01, 2024 11:31
--- NOTE | 2024-08-05 10:30 | ECG ---
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
== END 2024-08-01 11:35 | disposition home or self-care (01) | DRG 320 ==
LOC: ER 16:17 → OVERFLOW 22:54 → WEST WING 07-30 11:44
PROVIDERS: ATTEND Nurse Practitioner Acute Care
PROC: 0QSD04Z Reposition Right Patella with Internal Fixation Device, Open Approach (ICD-10-PCS; principal; 2024-07-31 12:17)
DX: S82.031A Displaced transverse fracture of right patella, initial encounter for closed fracture (principal); I11.9 Hypertensive heart disease without heart failure; E66.9 Obesity, unspecified; W01.0XXA Fall on same level from slipping, tripping and stumbling without subsequent striking against object, initial encounter; Y93.01 Activity, walking, marching and hiking; Z68.32 Body mass index [BMI] 32.0-32.9, adult; Y93.89 Activity, other specified; Y92.89 Other specified places as the place of occurrence of the external cause; Y99.8 Other external cause status
CPT/HCPCS: 36415; 71045; 73560; 73562; 76000; 80048; 80053; 81001; 82306; 82607; 82746; 83036; 85025; 85610; 86850; 86900; 86901; 87081; G0378; J0131; J0171; J1100; J1885; J2003; J2405; J2704; J3490; Q0162